=== PATIENT | female | born 1990 | race Caucasian/White ===

== ENCOUNTER 2020-07-02 04:47 | Emergency (ER) | payer OTHER ==
[~2020-07-02] VITALS: Ht 149.9 cm; Wt 106.0 kg
[2020-07-02] MEDS ORDERED: HYDROCODON-ACE1 EAC7 PO (07:28)
[2020-07-02 07:55] VITALS: BP 142/103
== END 2020-07-02 07:55 | disposition still patient (30) ==
LOC: M.ERS 04:47
DX: S89.82XA Other specified injuries of left lower leg, initial encounter (principal); Z88.5 Allergy status to narcotic agent; X50.1XXA Overexertion from prolonged static or awkward postures, initial encounter; Y93.89 Activity, other specified; Y92.89 Other specified places as the place of occurrence of the external cause; Y99.8 Other external cause status